=== PATIENT | male | born 1930 | race Caucasian/White ===

== ENCOUNTER 2017-09-13 11:03 | Day surgery (SDC) | payer MEDICARE, BC ==
[2017-09-13] VITALS (8 sets, daily range): BP systolic 132–159; BP diastolic 73–90; PULSE 55–66; TEMP 97.4–98.3
[~2017-09-13] VITALS: Ht 175.4 cm; Wt 88.0 kg
[~2017-09-13 11:03] MED LIST: ALEVE 220MG220 MG PO; ALLOPURINOL300 MG PO; AMARYL4 MG PO; AMLODIPINE5 MG PO; ASPIRIN 81M81 MG/TA2 PO; AVAPRO150 MG PO; CALCIUM 600MG+D1 TAB PO; CARDI-OMEGA1000 MG PO; COZAAR100 MG PO; DYAZIDE 25 MG-31 CAP PO; DYAZIDE PO; FINASTERIDE5 MG PO; FISH OIL CONC1000 MG PO; FLOMAX 0.40.4 MG/CAP PO; FOSINOPRIL40 MG PO; KLOR-CON20 MEQ PO; LOPRESSOR 550 MG/TAB PO; LOPRESSOR100 MG PO; MAXZIDE-25MG TA1 TAB PO; METAMUCIL3.4 GM/DOS PO; MONOPRIL40 MG PO; MULTIPLE VITAMI1 TA5 PO; NATURE'S BLEND400 IU PO; NORVASC 10MG10 MG PO; NORVASC 5MG5 MG/TAB PO; OMEPRAZOLE20 MG PO; PRILOSEC 20MG20 MG PO; PROSCAR PO; TYLENOL ARTHRI650 M1 PO; VITAMIN B121000 MCG PO; VITAMIN B12500 MCG PO; VITAMIN C500 MG PO; ZAROXOLYN5 MG PO; ZESTRIL 10MG10 MG PO; ZYLOPRIM 300MG300 MG PO; [UNRECOGNIZED DRUG - OTHER] PO
[2017-09-13 12:05] LABS: POTASSIUM 3.9 mmol/L (3.4-5.0)
[2017-09-13 12:06] LABS: INR 1.7 (0.8-3.0); PROTHROMBIN TIME 19.8 SECONDS (9.7-12.8)
[2017-09-13] MEDS ORDERED: PROSCAR 5MG5 MG PO (12:06)
[2017-09-13] MEDS ORDERED: LOPRESSOR 225 MG/TAB PO (12:08)
[2017-09-13] MEDS ORDERED: REMERON 15M15 MG/TA1 PO (12:09)
[2017-09-13] MEDS ORDERED: MYSOLINE 5050 MG/TAB PO (12:10)
[2017-09-13] MEDS ORDERED: COUMADIN 5MG5 MG/TAB PO (12:12)
[2017-09-13] MEDS ORDERED: VITAMIN B11000 MCG/M IM (12:13)
[2017-09-13] MEDS ORDERED: PEPCID 20MG TAB20 MG PO (12:15)
[2017-09-13] MEDS ORDERED: VITAMIN D31000 I1 PO (12:18)
[2017-09-13] MEDS ORDERED: CORDARONE200 MG/TAB PO (12:21)
[2017-09-13 12:40] LABS: THYROID STIMULATING HORMONE 40.6 uIU/mL (0.465-4.680)
== END 2017-09-13 15:50 | disposition home or self-care (01) ==
LOC: COL.CAR 11:03
PROVIDERS: Internal Medicine Interventional Cardiology
DX: I48.0 Paroxysmal atrial fibrillation (principal); R60.0 Localized edema; R06.02 Shortness of breath; D64.9 Anemia, unspecified; E11.9 Type 2 diabetes mellitus without complications; Z95.0 Presence of cardiac pacemaker; Z79.82 Long term (current) use of aspirin; Z79.01 Long term (current) use of anticoagulants; Z82.3 Family history of stroke; Z82.49 Family history of ischemic heart disease and other diseases of the circulatory system
CPT/HCPCS: J2250; J3010; J7030

== ENCOUNTER → 2018-04-04 | Outpatient (CLI) | payer MEDICARE, BC ==
[~2018-04-04] MED LIST changes: +CORDARONE200 MG/TAB PO; +COUMADIN 5MG5 MG/TAB PO; +LOPRESSOR 225 MG/TAB PO; +MYSOLINE 5050 MG/TAB PO; +PEPCID 20MG TAB20 MG PO; +PROSCAR 5MG5 MG PO; +REMERON 15M15 MG/TA1 PO; +VITAMIN B11000 MCG/M IM; +VITAMIN D31000 I1 PO
== END ==
LOC: ZCOL.LAB 16:02
DX: T81.33XA Disruption of traumatic injury wound repair, initial encounter (principal); L97.929 Non-pressure chronic ulcer of unspecified part of left lower leg with unspecified severity

== ENCOUNTER 2018-04-07 18:55 | Inpatient (IN) | payer MEDICARE, BC ==
[~2018-04-07] VITALS: Ht 177.8 cm; Wt 81.8 kg
[~2018-04-07 18:55] MED LIST changes: -CALCIUM 600MG+D1 TAB PO; -CARDI-OMEGA1000 MG PO; +EPA FISH OIL1 SGL PO; +MASON NATURAL2000 IU PO
[2018-04-07 22:04] LABS: BASO % 0.1 % (0.0-2.0); GRAN # 5.6 (1.4-6.5); GRAN % 66.3 % (42.2-75.2); LYMPH # 2.2 (1.2-3.4); LYMPH % 26.4 % (20.0-51.0); MEAN CELL VOLUME 106 fl (80.0-100.0); MEAN CORPUSCULAR HGB CONC 33 g/dl (33.0-37.0); MEAN PLATELET VOLUME 10.8 fl (7.4-10.4); MONO # 0.5 (0.1-0.6); MONO % 6.3 % (1.7-9.3); PLATELET COUNT 238 K/mm3 (130-400); RED BLOOD COUNT 2.25 M/mm3 (4.20-5.60); REDCELL DISTRIBUTION WIDTH-CV 13.2 % (11.5-14.5)
[2018-04-07 22:08] LABS: HEMATOCRIT 23.8 % (42.0-52.0); HEMOGLOBIN 7.9 g/dl (13.5-18.0); MEAN CORPUSCULAR HEMOGLOBIN 35 pg (27.0-31.0)
[2018-04-07 22:17] LABS: ALBUMIN 3.4 gm/dL (3.5-5.0); BILIRUBIN,TOTAL 0.3 mg/dL (0.0-1.0); C-REACTIVE PROTEIN 6.5 mg/dL (0.0-0.9); CALCIUM 9.4 mg/dL (8.4-10.2); CREATININE, serum 1.33 mg/dL (0.66-1.25); POTASSIUM 4.8 mmol/L (3.4-5.0); TOTAL PROTEIN 6.4 gm/dL (6.4-8.2)
[2018-04-07 22:27] LABS: INR 8.5 (0.8-3.0); PROTHROMBIN TIME 96.4 SECONDS (9.7-12.8)
[2018-04-07] MEDS ORDERED: SYNTHROID 0.10.15 MG PO (22:27)
[2018-04-07] MEDS ORDERED: COUMADIN4 MG PO (22:38)
[2018-04-07 23:23] LABS: COLLECTION METHOD CLEAN CATCH
[2018-04-07 23:39] LABS: HYALINE CAST >12 /lpf; MUCOUS Present /lpf; PH 5 (5-8); SQUAMOUS EPITHELIAL 0-2 /hpf; URINE APPEARANCE Clear; URINE BACTERIA None Seen /hpf; URINE BILIRUBIN Negative (NEGATIVE); URINE BLOOD Negative (NEGATIVE); URINE COLOR Yellow; URINE GLUCOSE Negative (NEGATIVE); URINE KETONE Negative (NEGATIVE); URINE LEUKOCYTE ESTERASE Negative (NEGATIVE); URINE NITRATE Negative (NEGATIVE); URINE PROTEIN(semi-quant) Negative (NEGATIVE); URINE UROBILINOGEN Negative (NEGATIVE)
[2018-04-08] VITALS (12 sets, daily range): BP systolic 81–127; BP diastolic 39–61; PULSE 55–62; TEMP 97.9–98.3
--- NOTE | 2018-04-08 01:54 | NUR ---
THE PT WAS BROUGHT TO THE ROOM VIA STRETCHER, TRANSFERRED TO BED WITH 3 MAX ASSIST. VSS, SKIN ISSUES ARE LISTED HERE, TOO NUMEROUS FOR 5 PAGE ASSESSMENT SHEET: RIGHT MEDIAL KNEE, SUPERFICIAL 3" ABRAISION, DRY. LEFT LATERAL FOREHEAD, 3 SMALL AREAS OF SUPERFICIAL ABRAISION. LEFT ELBOW, SKIN TEAR, WITH GUAZE AND FOAM TAPE WITH AN OUTER COVERING OF TUBE GUAZE. CHEST, ABDOMEN- MULTIPLE LARGE FADED ECCYMOTIC AREAS, BROWN TO YELLOWISH, UNDER RIBS, ON RIBS. PT STATED FROM FALL IN HIS SHOWER. LEFT SALDAÑA, LARGE BLACK DRESSING DONE AT WOUND CARE FOR A WOUND THAT DEVELOPED ON HIS PREVIOUS HEMATOMA. LEFT ANTERIOR UPPER ARM, 4 AREAS OF ABRAISION, SMALL CIRCULAR, APROX .5CM WITH ECCYMOSIS SURROUNDING IT. LEFT UPPER THIGH, EDEMATOUS, THIGH WITH A 4" ECCYMOTIC AREA TO THE LATERAL ASPECT. INT TO HIS LEFT UPPER ARM. HE IS BEDRESTING, REQUESTED LIGHTS OUT SO THAT HE CAN SLEEP.
--- NOTE | 2018-04-08 05:38 | NUR ---
ORDERS TO THOMAS AND MEASURE HEMATOMA LEFT THIGH, AREAS MARKED BYMaryam HEATON, CHARGE NURSE WHO STATED THAT SHE IS UNABLE TO LOCATE A MEASURING TAPE AT THIS TIME TO MEASURE WILL TRY AND PERCURE ONE THROUGH CENTRAL SUPPLY THIS AM. IV PATENT TO RIGHT UPPER ARM, THE PT VERBALIZED THAT HE IS SLEEPING WELL.
[2018-04-08 07:47] LABS: BASO % 0.4 % (0.0-2.0); EOS % 0.3 % (0-4.0); GRAN # 4.2 (1.4-6.5); GRAN % 58.2 % (42.2-75.2); LYMPH # 2.3 (1.2-3.4); LYMPH % 32.6 % (20.0-51.0); MEAN CELL VOLUME 105 fl (80.0-100.0); MEAN CORPUSCULAR HGB CONC 33 g/dl (33.0-37.0); MONO # 0.6 (0.1-0.6); MONO % 7.7 % (1.7-9.3); PLATELET COUNT 200 K/mm3 (130-400); RED BLOOD COUNT 1.82 M/mm3 (4.20-5.60); REDCELL DISTRIBUTION WIDTH-CV 13.2 % (11.5-14.5); RETIC # 0.03 M/mm3 (0.02-0.16); RETIC % 1.9 % (0.5-3.52)
[2018-04-08 07:54] LABS: HEMATOCRIT 19.1 % (42.0-52.0); HEMOGLOBIN 6.3 g/dl (13.5-18.0); MEAN CORPUSCULAR HEMOGLOBIN 35 pg (27.0-31.0)
[2018-04-08 07:56] LABS: CALCIUM 8.6 mg/dL (8.4-10.2); CREATININE, serum 1.18 mg/dL (0.66-1.25); POTASSIUM 4.3 mmol/L (3.4-5.0)
[2018-04-08 08:06] LABS: IRON,SERUM 59 ug/dL (35-150)
[2018-04-08 08:15] LABS: TOTAL IRON BINDING CAPACITY 213 ug/dL (261-462)
[2018-04-08 08:21] LABS: INR 9.3 (0.8-3.0); PROTHROMBIN TIME 106.4 SECONDS (9.7-12.8)
--- NOTE | 2018-04-08 08:37 | NUR ---
Pt is awake and A/Ox4, resting in bed. He denies any pain or discomfort at this time. He states his left thigh is "occasionally sore" but none at this time. Small bruise, approx. 1/2 dollar size, noted to left upper thigh, surrounding skin is soft to touch. Thigh circum. 57 cm. Dressing to LLE per wound care is CDI. Dressings to bilat. FA are CDI. Pt remains NPO at this time. IVF are infusing into left upper arm without difficulty. Denies any needs, bed alarm is on.
[2018-04-08 08:42] LABS: FERRITIN 282 ng/mL (18-464)
--- NOTE | 2018-04-08 09:52 | NUR ---
Vitamin K started at this time, RN to remain in room until completed.
--- NOTE | 2018-04-08 10:00 | NUR ---
Left thigh circum. unchanged, 57 cm.
--- NOTE | 2018-04-08 11:41 | NUR ---
Unit of PRBC started at this time. Unit was verified with JODI Tang. Rate started at 60 ml/hr. S/S of tranfusion reaction was reviewed with pt, expressed understanding. Nurse to remain at bedside for first 15 min.
--- NOTE | 2018-04-08 11:54 | NUR ---
Pt is tolerating blood transfusion without difficulty. BP remains low but pt is sleeping soundly, asymptomatic. Rate increased to 100 ml/hr. Will monitor.
--- NOTE | 2018-04-08 12:00 | NUR ---
Left thigh circum. unchanged, 57 cm.
--- NOTE | 2018-04-08 13:55 | NUR ---
Pt continues to tolerate blood transfusion without difficulty. He is sitting up in bed finishing lunch. Denies any other needs.
--- NOTE | 2018-04-08 14:00 | NUR ---
Pt left thigh circum. is 57 cm.
--- NOTE | 2018-04-08 14:09 | NUR ---
Plan to return home with DTR Amy Chavez and home health care through [facility]. Patient reports that he has a lot of neighborhood support. Patient reports that he uses a fourwheel walker. Patient reports that he uses [facility] for RX and PCP is Dr. Degroot. Patient has a follow-up on the or the and a wound care dion on Tuesday. Patient reports that he no longer drives. 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 Action: Edcuated patient of resources and services. No additional care concerns identified.
--- NOTE | 2018-04-08 15:56 | NUR ---
Left thigh cirucum. is 57 cm.
[2018-04-08 16:59] LABS: INR 2.4 (0.8-3.0); PROTHROMBIN TIME 27.6 SECONDS (9.7-12.8)
[2018-04-08 17:51] LABS: BASO % 0.3 % (0.0-2.0); EOS # 0.1 (0.0-0.7); EOS % 0.6 % (0-4.0); GRAN # 4.3 (1.4-6.5); GRAN % 54.1 % (42.2-75.2); LYMPH # 2.9 (1.2-3.4); LYMPH % 37.4 % (20.0-51.0); MEAN CELL VOLUME 103 fl (80.0-100.0); MEAN CORPUSCULAR HGB CONC 33 g/dl (33.0-37.0); MEAN PLATELET VOLUME 11.2 fl (7.4-10.4); MONO # 0.5 (0.1-0.6); MONO % 6.8 % (1.7-9.3); PLATELET COUNT 197 K/mm3 (130-400); RED BLOOD COUNT 2.14 M/mm3 (4.20-5.60); REDCELL DISTRIBUTION WIDTH-CV 14.8 % (11.5-14.5)
[2018-04-08 18:00] LABS: HEMATOCRIT 22.1 % (42.0-52.0); HEMOGLOBIN 7.3 g/dl (13.5-18.0); MEAN CORPUSCULAR HEMOGLOBIN 34 pg (27.0-31.0)
--- NOTE | 2018-04-08 18:16 | NUR ---
Left thigh circum. is 57 cm. Pt has had an uneventful shift. He continues to be without pain. Bruise to left thigh remains unchanged. Pt denies any other needs.
[2018-04-09 00:34] VITALS: BP 126/47; PULSE 55; TEMP 97.9
--- NOTE | 2018-04-09 01:02 | NUR ---
THE PT WAS BEDRESTING WITH EYES CLOSED, SHIFT REPORT WAS DONE, NOT HAPPY ABOUT BEING AROUSED. IV PATENT TO LEFT UPPER ARM, MATTRESS COVER IS WRAPPED AROUND THE PUMP TO MUFFLE THE SOUND THE PT WAS ANNOYED BY IT. BRUISE TO LEFT LATERAL THIGH IS STABLE, CIRCUMFRANCE OF THE THIGH AT THE THOMAS IS 57CM CONSISTANTLY THE PAST 3 TIMES THAT IT WAS CHECKED. THE PT DECLINED AN HS SNACK, SPILLED HIS URINAL X2 IN THE BED, HYGIENE ASSISTED WITH A PARTIAL BED CHANGE. ENCOURAGED HIM TO CALL FOR ASSISTANCE WITH IT THE NEXT TIME THAT HE NEEDS TO USE IT. APPEARS OT GET ADEQUATE SLEEP.
--- NOTE | 2018-04-09 02:11 | NUR ---
NO CHANGE IN CSM, CIRCUMFREANCE OR APPEARANCE OF THE PTS LEFT THIGH.
--- NOTE | 2018-04-09 05:08 | NUR ---
each measure of the p[ts left thigh had been in the 57-56 cm range. when measured at the hematoma morgan. the pt had c\o pain, no Tylenol on APR, the pt stated that Tylenol has never been helpful to him. will relay to day shift and get an order this am. pt didn;t want me to call the hospitalist. repositioned without the pillow under his leg and hob\fob up slightly. voided per urinal.
[2018-04-09 06:24] VITALS: BP 128/48; PULSE 59; TEMP 98.3
[2018-04-09 06:55] LABS: BASO % 0.5 % (0.0-2.0); EOS # 0.1 (0.0-0.7); EOS % 1.4 % (0-4.0); GRAN # 3.5 (1.4-6.5); GRAN % 54.1 % (42.2-75.2); LYMPH # 2.4 (1.2-3.4); LYMPH % 36.6 % (20.0-51.0); MEAN CELL VOLUME 103 fl (80.0-100.0); MEAN CORPUSCULAR HGB CONC 34 g/dl (33.0-37.0); MEAN PLATELET VOLUME 10.7 fl (7.4-10.4); MONO # 0.4 (0.1-0.6); MONO % 6.6 % (1.7-9.3); PLATELET COUNT 186 K/mm3 (130-400); RED BLOOD COUNT 2.08 M/mm3 (4.20-5.60); REDCELL DISTRIBUTION WIDTH-CV 14.7 % (11.5-14.5)
[2018-04-09 06:57] LABS: INR 1.4 (0.8-3.0)
[2018-04-09 07:11] LABS: CALCIUM 8.2 mg/dL (8.4-10.2); CREATININE, serum 0.88 mg/dL (0.66-1.25)
[2018-04-09 07:19] LABS: HEMATOCRIT 21.4 % (42.0-52.0); HEMOGLOBIN 7.2 g/dl (13.5-18.0); MEAN CORPUSCULAR HEMOGLOBIN 35 pg (27.0-31.0)
[2018-04-09 08:22] VITALS: BP 124/55; PULSE 56; TEMP 98.6
--- NOTE | 2018-04-09 09:54 | NUR ---
Pt is awake and A/Ox4. Denies pain to his leg, states he has a neck ache "from the bed", given warm pack. IVF are infusing into left upper arm without difficulty. Small bruise noted to left upper thigh, within outline. Surrounding skin is soft. Pt denies any other needs, will monitor.
[2018-04-09 12:06] VITALS: BP 125/57; PULSE 56; TEMP 97.7
[2018-04-09 15:49] VITALS: BP 127/56; PULSE 54; TEMP 98.5
--- NOTE | 2018-04-09 18:12 | NUR ---
Pt has had an overall uneventful shift. He continues to deny pain to his LLE. Family at bedside, denies any other needs.
[2018-04-09 20:38] VITALS: BP 122/48; PULSE 55; TEMP 99.4
--- NOTE | 2018-04-09 21:00 | NUR ---
Pt. laying in bed at this time. Pt. is A&OX3, assessment complete. INT to lt. upper arm patent. Pt. reported pain to lle earlier, gave pain meds with evening meds. Pt. repostioned for comfort. Pt. denies further needs, call light within reach.
[2018-04-10 04:49] VITALS: BP 114/43; PULSE 54; TEMP 97.3
--- NOTE | 2018-04-10 06:00 | NUR ---
Pt. laying in bed at this time. Pt. remains A&OX3. INT to lt. upper arm patent. Pt. denies pain or other needs at this time. Call light within reach.
[2018-04-10 06:19] LABS: BASO % 0.4 % (0.0-2.0); EOS # 0.1 (0.0-0.7); EOS % 2.3 % (0-4.0); GRAN # 3.1 (1.4-6.5); GRAN % 55.8 % (42.2-75.2); LYMPH # 1.9 (1.2-3.4); MEAN CELL VOLUME 104 fl (80.0-100.0); MEAN CORPUSCULAR HGB CONC 33 g/dl (33.0-37.0); MONO # 0.4 (0.1-0.6); MONO % 7.3 % (1.7-9.3); PLATELET COUNT 203 K/mm3 (130-400); RED BLOOD COUNT 1.96 M/mm3 (4.20-5.60); REDCELL DISTRIBUTION WIDTH-CV 14.6 % (11.5-14.5)
[2018-04-10 06:27] LABS: CALCIUM 8.1 mg/dL (8.4-10.2); CREATININE, serum 0.74 mg/dL (0.66-1.25); POTASSIUM 3.7 mmol/L (3.4-5.0)
[2018-04-10 06:31] LABS: HEMATOCRIT 20.4 % (42.0-52.0); HEMOGLOBIN 6.8 g/dl (13.5-18.0); MEAN CORPUSCULAR HEMOGLOBIN 35 pg (27.0-31.0)
[2018-04-10 06:54] LABS: INR 1.4 (0.8-3.0); PROTHROMBIN TIME 16.4 SECONDS (9.7-12.8)
--- NOTE | 2018-04-10 07:12 | NUR ---
Report from Naseem ZAPATA.
[2018-04-10 07:22] VITALS: BP 137/57; PULSE 55; TEMP 97.2
--- NOTE | 2018-04-10 07:46 | NUR ---
hgb or 6.[address] Segundo. He will eval during rounds.
--- NOTE | 2018-04-10 11:19 | NUR ---
SW attended clinical rounding and met with patient to discuss snf recommendation from PT. Patient reports he would like his daughter, Kriss, to make the decision and asked for SW to call him. SW contacted Kriss who would like [facility] and [facility]2 [facility]. SW made referrals and will follow up with daughter once anyone has accepted. Zen from [facility] called this SW and reported they were going to go screen this previous sat for wound care, PT, and OT. SW will keep them updated as to where patient goes so they can follow. Chioce form placed on chart. SW to follow.
--- NOTE | 2018-04-10 11:56 | NUR ---
WOUND CARE HERE TO PLACE WOUND VAC TO LEFT LOWER EXTREMITY. WOUND IS APPROX 3 INCHES X 1 INCH WIDE AND TUNNELING MALODEROUS WOUND.
[2018-04-10 12:27] VITALS: BP 128/63; PULSE 55; TEMP 97.9
[2018-04-10 15:39] VITALS: BP 120/53; PULSE 61; TEMP 97.5
--- NOTE | 2018-04-10 15:53 | NUR ---
[facility] cannot accept if patient is on a wound vac. Would like an update tomorrow. [facility] also cannot accept if on a wound vac. Both will follow if patient doesnt need wound vac.
[2018-04-10 16:18] LABS: HEMATOCRIT 23.5 % (42.0-52.0); HEMOGLOBIN 7.9 g/dl (13.5-18.0)
[2018-04-10 20:39] VITALS: BP 145/55; PULSE 88; TEMP 98.6
--- NOTE | 2018-04-10 21:00 | NUR ---
Assessment completed. Patient is A&O x 4. VSS, on room air. Denies any pain unless he states he pushes on his left thigh. Noted scattered abrasions & skin tears to left upper arm and left leg. Moderate sized area on left thigh of ecchymosis. Wound vac to LLE wound @ 200 mm of continuous suction, scant output noted. Denies any nausea. Voiding via urinal with no difficulities. INT to left upper arm with intermittent antibiotic. Repositioned with assist x 2. Denies any concerns or needs, call light within reach.
[2018-04-11] VITALS (7 sets, daily range): BP systolic 109–144; BP diastolic 56–66; PULSE 55–58; TEMP 97.5–98.6
--- NOTE | 2018-04-11 05:39 | NUR ---
Patient has been resting well through the night between nursing disruptions. VSS, remains on room air. Denies any pain. Wound vac remains to continuous suction at 200 mm to LLE wound. Repositioned through the night with assist x 2. Denies any concerns or needs at this time, call light remains within reach.
--- NOTE | 2018-04-11 06:45 | NUR ---
Reported on to JODI Amador.
--- NOTE | 2018-04-11 07:00 | NUR ---
Hematoma lateral upper left leg reduced in size from reference line. Wound vac left ankle. Vac bandage CDI. No SCDs or TEDs on either leg. INT on left AC CDI.
[2018-04-11 07:58] LABS: MEAN CELL VOLUME 105 fl (80.0-100.0); MEAN CORPUSCULAR HGB CONC 33 g/dl (33.0-37.0); MEAN PLATELET VOLUME 10.6 fl (7.4-10.4); PLATELET COUNT 240 K/mm3 (130-400); RED BLOOD COUNT 2.03 M/mm3 (4.20-5.60); REDCELL DISTRIBUTION WIDTH-CV 14.2 % (11.5-14.5)
[2018-04-11 08:01] LABS: HEMATOCRIT 21.3 % (42.0-52.0); HEMOGLOBIN 7.1 g/dl (13.5-18.0); MEAN CORPUSCULAR HEMOGLOBIN 35 pg (27.0-31.0)
[2018-04-11 08:10] LABS: INR 1.9 (0.8-3.0); PROTHROMBIN TIME 21.2 SECONDS (9.7-12.8)
[2018-04-11 08:20] LABS: EOSINOPHIL 3 % (0-4); LYMPHOCYTE 35 % (20.0-51.0); NEUTROPHILS 56 % (42.0-75.2); NUCLEATED RED BLOOD CELL 1 (0-6); PLATELET ESTIMATE NORMAL (NORMAL)
--- NOTE | 2018-04-11 09:45 | NUR ---
PT trandfer to chair. Unsteady gait. 2 assist.
--- NOTE | 2018-04-11 10:00 | NUR ---
Consult with Dr. Segundo. Daughter and son-in-law present.
--- NOTE | 2018-04-11 10:43 | NUR ---
Initial visit; Patient thanked Carbide Operator for looking in on him and offering spiritual care. Carbide Operator offered God's blessings and wished him well.
--- NOTE | 2018-04-11 13:06 | NUR ---
SW attended clinical rounds and updated the patient, patient's daughter (Sanam), and son-in-law on referrals. The patient and patient's daughter are agreeable for patient to transfer to [facility] upon discharge. BROOKS informed Torres at [facility]. SW to fax [facility] updates and continue to follow.
--- NOTE | 2018-04-11 20:00 | NUR ---
Assessment completed. Patient is A&O x 4. VSS, on room air. Tele maintained. Denies any pain. Left upper thigh hematoma with ecchymosis, previous marked site. Wound vac to 200 mm of continuous suction to LLE wound, scant amount of brown drainage noted in tubing and chamber. Patient states he has been working on ankle pumps that he was instructed to do. Repositioned in bed with assist x 2. Denies any nausea. Voiding per urinal, urine is yellow clear. INT to left upper arm with intermittent antibiotic. Denies any concerns or needs at this time, call light is within reach.
[2018-04-12 04:05] VITALS: BP 122/53; PULSE 57; TEMP 98.5
--- NOTE | 2018-04-12 05:31 | NUR ---
Patient has rested intermittently through the night. VSS, remains on room air. Continues to deny any pain. One episode of incontinence through the night, pericare provided. Repositioned with assist x 2. Wound vac remains to LLE to 200 mm of continuous suction. Denies any concerns or needs, call light remains within reach.
--- NOTE | 2018-04-12 06:40 | NUR ---
appears to be dozing, awakens easily, bedside shift report received from JODI Shelton
--- NOTE | 2018-04-12 07:09 | NUR ---
Report given to JODI Rogers.
[2018-04-12 07:40] LABS: BASO % 0.4 % (0.0-2.0); EOS # 0.2 (0.0-0.7); GRAN # 3.1 (1.4-6.5); GRAN % 58.3 % (42.2-75.2); LYMPH # 1.7 (1.2-3.4); LYMPH % 31.3 % (20.0-51.0); MEAN CELL VOLUME 106 fl (80.0-100.0); MEAN CORPUSCULAR HGB CONC 33 g/dl (33.0-37.0); MEAN PLATELET VOLUME 9.9 fl (7.4-10.4); MONO # 0.3 (0.1-0.6); MONO % 6.3 % (1.7-9.3); PLATELET COUNT 245 K/mm3 (130-400); RED BLOOD COUNT 2.06 M/mm3 (4.20-5.60); REDCELL DISTRIBUTION WIDTH-CV 14.9 % (11.5-14.5)
[2018-04-12 07:43] LABS: HEMATOCRIT 21.8 % (42.0-52.0); HEMOGLOBIN 7.2 g/dl (13.5-18.0); MEAN CORPUSCULAR HEMOGLOBIN 35 pg (27.0-31.0)
[2018-04-12 07:54] LABS: CALCIUM 7.9 mg/dL (8.4-10.2); CREATININE, serum 0.74 mg/dL (0.66-1.25); POTASSIUM 3.7 mmol/L (3.4-5.0)
[2018-04-12 08:00] VITALS: BP 124/66; PULSE 89; TEMP 98.3
[2018-04-12 08:09] LABS: INR 1.8 (0.8-3.0); PROTHROMBIN TIME 20.1 SECONDS (9.7-12.8)
--- NOTE | 2018-04-12 08:30 | NUR ---
resting in bed after having had breakfast, full assessment completed, see interventions for further info, wound vac at 200 continuous, has large buise to left hip and thigh that is soft, denies pain or needs
--- NOTE | 2018-04-12 10:35 | NUR ---
physical therapy in to work with patient, ambulated short distance and then into bathroom to have bowel movement
--- NOTE | 2018-04-12 10:55 | NUR ---
ambulated back to bed with 1 assist, wound vac on at 200 continuous
--- NOTE | 2018-04-12 11:30 | NUR ---
Dr Silva and care team in to see patient
--- NOTE | 2018-04-12 12:12 | NUR ---
wound care nurses in to see ptient and dressing to wound vac changed, tolerated well
[2018-04-12 12:25] VITALS: BP 133/60; PULSE 55; TEMP 98.1
--- NOTE | 2018-04-12 13:42 | NUR ---
physical therapy in to work with patient, refused to get out of bed with therapy that he is too tired after having wound care in, now asking about preventing "bedsore" that his bottom is sore, encouraged to get out of bed and/or lay on side
--- NOTE | 2018-04-12 14:00 | NUR ---
medicated with tylenol 650mg for c/os pain to left leg,
--- NOTE | 2018-04-12 14:19 | NUR ---
SW contacted and faxed updates to [facility]. BROOKS to continue to follow.
--- NOTE | 2018-04-12 15:24 | NUR ---
asking to take a walk, walked from his room out to nurses station and then back and into recliner to rest for a while, denies needs
[2018-04-12 16:09] VITALS: BP 127/57; PULSE 56; TEMP 98.1
--- NOTE | 2018-04-12 17:53 | NUR ---
sitting up in bed eating supper,
--- NOTE | 2018-04-12 18:58 | NUR ---
bedside shift report given to Caroline Shelton
--- NOTE | 2018-04-12 20:15 | NUR ---
Assessment completed. Patient is A&O x 4. VSS, on room air. Tele maintained. Tylenol given for c/o LLE pain, reports it is better from earlier today after dressing changed. Wound vac to LLE with 200 mm of continuous suction. Scattered abrasions and skin tear to left upper arm. Hematoma noted on left thigh and bruising noted to left thigh/hip. Denies any nausa. Voiding via urinal with no difficulities, urine is yellow clear. INT to left upper arm with intermittent antibiotic. Denies any concerns or needs at this time, call light is within reach.
[2018-04-12 20:16] VITALS: BP 129/50; PULSE 56; TEMP 98.4
[2018-04-13 00:54] VITALS: BP 120/60; PULSE 55; TEMP 98.6
[2018-04-13 03:37] VITALS: BP 143/57; PULSE 59; TEMP 98.6
--- NOTE | 2018-04-13 04:55 | NUR ---
Patient has rested intermittently through the night. VSS, remains on room air. Denies any pain this morning, states the Tylenol took care of it all earlier. Wound vac to LLE remains to 200 mm of continuous suction with scant amount of brown output. INT with intermittent antibiotic. Patient did have an episode of incontinence of urine. Bed changed and pericare provided. Repositioned through the night with assist x 2. Denies any concerns or needs at this time, call light remains within reach.
[2018-04-13 07:50] LABS: BASO % 0.5 % (0.0-2.0); EOS # 0.2 (0.0-0.7); EOS % 3.6 % (0-4.0); GRAN # 2.5 (1.4-6.5); GRAN % 55.4 % (42.2-75.2); LYMPH # 1.4 (1.2-3.4); LYMPH % 32.1 % (20.0-51.0); MEAN CELL VOLUME 106 fl (80.0-100.0); MEAN CORPUSCULAR HGB CONC 33 g/dl (33.0-37.0); MEAN PLATELET VOLUME 10.5 fl (7.4-10.4); MONO # 0.3 (0.1-0.6); MONO % 7.7 % (1.7-9.3); PLATELET COUNT 249 K/mm3 (130-400); RED BLOOD COUNT 2.11 M/mm3 (4.20-5.60); REDCELL DISTRIBUTION WIDTH-CV 15.3 % (11.5-14.5)
[2018-04-13 07:59] LABS: HEMATOCRIT 22.3 % (42.0-52.0); HEMOGLOBIN 7.3 g/dl (13.5-18.0); MEAN CORPUSCULAR HEMOGLOBIN 35 pg (27.0-31.0)
[2018-04-13 08:06] LABS: CALCIUM 7.9 mg/dL (8.4-10.2); CREATININE, serum 0.74 mg/dL (0.66-1.25); POTASSIUM 3.7 mmol/L (3.4-5.0)
[2018-04-13 12:33] VITALS: BP 130/74; PULSE 55; TEMP 97.5
--- NOTE | 2018-04-13 15:15 | NUR ---
BROOKS contacted and faxed updates to [facility]. SW to continue to follow.
[2018-04-13 16:18] VITALS: BP 1208/59; BP 128/59; PULSE 56; TEMP 98
--- NOTE | 2018-04-13 18:00 | NUR ---
Patient has done well today. No complaints of pain or nausea. Dressing to LLE is intact, wound-vac is working without problems. Patient sat up in the recliner for a short time this am. He said it was uncomfortable. He is hoping to discharge tomorrow. No other changes at this time. Call light within reach.
[2018-04-13 19:22] VITALS: BP 130/59; PULSE 64; TEMP 97.5
--- NOTE | 2018-04-13 21:45 | NUR ---
Assessment completed. Patient is A&O x 4. VSS, on room air. Denies any pain. Wound vac remains to LLE at 200 mm of continuous suction, scant amount of brown drainage noted in tubing and chamber. Scattered abrasions and skin tear to left upper arm. Bruising and swelling to left thigh. Denies any nausea. Voiding via urinal with occassional incontinence. Repositioned with assist x 2 in bed. INT to left upper arm with intermittent antibiotic. Denies any concerns or needs at this time. Bed remains in a low position with call light in reach.
[2018-04-14 00:36] VITALS: BP 132/58; PULSE 55; TEMP 98.3
[2018-04-14 04:53] VITALS: BP 126/59; PULSE 58; TEMP 98
[2018-04-14 06:23] LABS: BASO % 0.5 % (0.0-2.0); EOS # 0.1 (0.0-0.7); EOS % 2.3 % (0-4.0); GRAN # 3.4 (1.4-6.5); GRAN % 59.1 % (42.2-75.2); LYMPH # 1.7 (1.2-3.4); MEAN CELL VOLUME 108 fl (80.0-100.0); MEAN CORPUSCULAR HGB CONC 33 g/dl (33.0-37.0); MEAN PLATELET VOLUME 10.4 fl (7.4-10.4); MONO # 0.4 (0.1-0.6); MONO % 7.2 % (1.7-9.3); PLATELET COUNT 276 K/mm3 (130-400); RED BLOOD COUNT 2.12 M/mm3 (4.20-5.60); REDCELL DISTRIBUTION WIDTH-CV 16.2 % (11.5-14.5)
--- NOTE | 2018-04-14 06:24 | NUR ---
Patient has rested well through the night. VSS, remains on room air. Continues to deny any pain. Wound vac remains maintained to LLE with 200 mm of continuous suction. Up with assist x 2 to the bedside commode. Denies any concerns or needs at this time, call light is within reach.
[2018-04-14 06:28] LABS: HEMATOCRIT 22.9 % (42.0-52.0); HEMOGLOBIN 7.6 g/dl (13.5-18.0); MEAN CORPUSCULAR HEMOGLOBIN 36 pg (27.0-31.0)
[2018-04-14 06:35] LABS: CREATININE, serum 0.91 mg/dL (0.66-1.25); POTASSIUM 3.7 mmol/L (3.4-5.0)
[2018-04-14 06:44] LABS: INR 1.5 (0.8-3.0); PROTHROMBIN TIME 16.7 SECONDS (9.7-12.8)
[2018-04-14] MEDS ORDERED: AMOXICILLIN 8751 TAB PO (07:10)
[2018-04-14] MEDS ORDERED: TYLENOL 325MG325 MG PO (07:10)
[2018-04-14] MEDS ORDERED: FERROUS GL325 MG/TAB PO (07:10)
[2018-04-14 07:21] VITALS: BP 142/63; PULSE 57; TEMP 98.4
--- NOTE | 2018-04-14 10:36 | NUR ---
The patient is to discharge today, 04/14, to [facility] for a skilled stay. Transportation was set for around [id number] via [facility]. SW informed the patient, patient's family friend (Leyla), and his nurse. They were all in agreeance. SW presented and explained the IM form to the patient. Patient verbalized understanding and signed the form. SW provided a copy. No additional needs at this time.
[2018-04-14 11:39] VITALS: BP 142/63; PULSE 57; TEMP 98.4
--- NOTE | 2018-04-14 13:07 | NUR ---
Patient is leaving. He is discharging to [facility]. Attempted to call report twice. Nobody is answering. Left a message, will attempt again. All belongings packed up and sent with patient. Info packet sent with patient. INT discontinued.
--- NOTE | 2018-04-14 14:30 | NUR ---
Attempted to call 3 times and only got the voicemail at [place] [facility]. No one has called back for report.
== END 2018-04-14 13:10 | DRG 605 ==
LOC: COL.ER 18:55 → SURG 23:15
PROVIDERS: Emergency Medicine; Family Medicine; Nurse Practitioner; Physician Assistant; ADMIT Internal Medicine
DX: S70.02XA Contusion of left hip, initial encounter (principal); D62 Acute posthemorrhagic anemia; D68.32 Hemorrhagic disorder due to extrinsic circulating anticoagulants; W18.30XA Fall on same level, unspecified, initial encounter; D51.9 Vitamin B12 deficiency anemia, unspecified; Z79.01 Long term (current) use of anticoagulants; I48.2 Chronic atrial fibrillation; N28.9 Disorder of kidney and ureter, unspecified; I10 Essential (primary) hypertension; Z91.81 History of falling; N40.0 Benign prostatic hyperplasia without lower urinary tract symptoms; E03.9 Hypothyroidism, unspecified; Z95.0 Presence of cardiac pacemaker
CPT/HCPCS: 99231-AI; 99232-AI; 99233-AI; 99239; J0295; J3430; J7030; P9016

== ENCOUNTER → 2018-04-17 | Outpatient (CLI) | payer MEDICARE, BC ==
[~2018-04-17] MED LIST changes: +AMOXICILLIN 8751 TAB PO; +COUMADIN4 MG PO; +FERROUS GL325 MG/TAB PO; +SYNTHROID 0.10.15 MG PO; +TYLENOL 325MG325 MG PO
[2018-04-17 12:17] LABS: BASO % 0.6 % (0.0-2.0); EOS # 0.2 (0.0-0.7); EOS % 2.7 % (0-4.0); GRAN # 3.9 (1.4-6.5); GRAN % 61.3 % (42.2-75.2); LYMPH # 1.8 (1.2-3.4); LYMPH % 27.9 % (20.0-51.0); MEAN CELL VOLUME 111 fl (80.0-100.0); MEAN CORPUSCULAR HGB CONC 32 g/dl (33.0-37.0); MEAN PLATELET VOLUME 10.4 fl (7.4-10.4); MONO # 0.4 (0.1-0.6); MONO % 6.6 % (1.7-9.3); PLATELET COUNT 314 K/mm3 (130-400); RED BLOOD COUNT 2.64 M/mm3 (4.20-5.60); REDCELL DISTRIBUTION WIDTH-CV 18.6 % (11.5-14.5)
[2018-04-17 12:19] LABS: HEMATOCRIT 29.3 % (42.0-52.0); HEMOGLOBIN 9.4 g/dl (13.5-18.0); MEAN CORPUSCULAR HEMOGLOBIN 36 pg (27.0-31.0)
== END ==
LOC: ZLAB.STJ 10:51
PROVIDERS: Family Medicine
DX: Z51.81 Encounter for therapeutic drug level monitoring (principal); Z79.899 Other long term (current) drug therapy; Z79.2 Long term (current) use of antibiotics

== ENCOUNTER → 2018-05-02 | Outpatient (REF) ==
[2018-05-02 09:43] LABS: BASO % 0.4 % (0.0-2.0); EOS # 0.2 (0.0-0.7); EOS % 4.1 % (0-4.0); GRAN # 2.1 (1.4-6.5); GRAN % 41.2 % (42.2-75.2); HEMATOCRIT 32.9 % (42.0-52.0); HEMOGLOBIN 10.7 g/dl (13.5-18.0); LYMPH # 2.4 (1.2-3.4); LYMPH % 45.7 % (20.0-51.0); MEAN CELL VOLUME 111 fl (80.0-100.0); MEAN CORPUSCULAR HEMOGLOBIN 36 pg (27.0-31.0); MEAN CORPUSCULAR HGB CONC 33 g/dl (33.0-37.0); MEAN PLATELET VOLUME 10.3 fl (7.4-10.4); MONO # 0.4 (0.1-0.6); MONO % 8.2 % (1.7-9.3); PLATELET COUNT 244 K/mm3 (130-400); RED BLOOD COUNT 2.97 M/mm3 (4.20-5.60); REDCELL DISTRIBUTION WIDTH-CV 17.8 % (11.5-14.5)
== END ==
LOC: ZLAB.STJ 09:23 → EDSTATUS 09:41
PROVIDERS: Family Medicine
DX: R68.89 Other general symptoms and signs (principal)

== ENCOUNTER → 2018-05-24 | Outpatient (CLI) | payer MEDICARE, BC ==
[2018-05-24 12:12] LABS: CREATININE, serum 0.7 (0.66-1.25); POTASSIUM 3.1 mmol/L (3.4-5.0)
== END ==
LOC: ZLAB.STJ 11:24
PROVIDERS: Family Medicine
DX: R79.89 Other specified abnormal findings of blood chemistry (principal)

== ENCOUNTER → 2018-05-24 | Outpatient (CLI) | payer MEDICARE, BC | LOC: ZLAB.STJ 10:33 | DX: R79.89 Other specified abnormal findings of blood chemistry (principal) ==

== ENCOUNTER → 2018-10-24 | Outpatient (CLI) | payer MEDICARE, BC | LOC: ZLAB.STJ 10:53 | PROVIDERS: Family Medicine | DX: D62 Acute posthemorrhagic anemia (principal) ==

== ENCOUNTER → 2018-11-29 | Outpatient (CLI) | payer MEDICARE, BC ==
[2018-11-29 13:11] LABS: HEMOGLOBIN 10.5 g/dl (13.5-18.0)
[2018-11-29 13:16] LABS: HEMATOCRIT 31.5 % (42.0-52.0)
== END ==
LOC: ZLAB.STJ 12:14
PROVIDERS: Family Medicine
DX: D62 Acute posthemorrhagic anemia (principal); M10.30 Gout due to renal impairment, unspecified site

== ENCOUNTER → 2018-12-11 | Outpatient (CLI) | payer MEDICARE, BC ==
[2018-12-11 14:27] LABS: CALCIUM 9.1 mg/dL (8.4-10.2); CREATININE, serum 0.73 (0.66-1.25)
[2018-12-11 14:31] LABS: BASO % 0.5 % (0.0-2.0); EOS # 0.2 (0.0-0.7); EOS % 4.6 % (0-4.0); GRAN # 1.9 (1.4-6.5); GRAN % 44.9 % (42.2-75.2); HEMOGLOBIN 10.7 g/dl (13.5-18.0); LYMPH # 1.8 (1.2-3.4); LYMPH % 41.1 % (20.0-51.0); MEAN CELL VOLUME 106 fl (80.0-100.0); MEAN CORPUSCULAR HEMOGLOBIN 36 pg (27.0-31.0); MEAN CORPUSCULAR HGB CONC 34 g/dl (33.0-37.0); MEAN PLATELET VOLUME 11.2 fl (7.4-10.4); MONO # 0.4 (0.1-0.6); MONO % 8.4 % (1.7-9.3); PLATELET COUNT 151 K/mm3 (130-400); RED BLOOD COUNT 2.97 M/mm3 (4.20-5.60); REDCELL DISTRIBUTION WIDTH-CV 13.1 % (11.5-14.5)
[2018-12-11 14:44] LABS: HEMATOCRIT 31.5 % (42.0-52.0)
== END ==
LOC: ZLAB.STJ 13:34
PROVIDERS: Family Medicine
DX: I10 Essential (primary) hypertension (principal); E11.69 Type 2 diabetes mellitus with other specified complication; D62 Acute posthemorrhagic anemia; D51.9 Vitamin B12 deficiency anemia, unspecified

== ENCOUNTER → 2018-12-25 | Outpatient (CLI) | payer MEDICARE, BC | LOC: ZCOL.LAB 13:47 | DX: D62 Acute posthemorrhagic anemia (principal) ==

== ENCOUNTER → 2019-01-26 | Outpatient (CLI) | payer MEDICARE, BC ==
[2019-01-26 12:07] LABS: BASO % 0.2 % (0.0-2.0); EOS # 0.1 (0.0-0.7); EOS % 2.3 % (0-4.0); GRAN # 2.1 (1.4-6.5); GRAN % 40.7 % (42.2-75.2); HEMOGLOBIN 11.9 g/dl (13.5-18.0); LYMPH # 2.5 (1.2-3.4); LYMPH % 47.5 % (20.0-51.0); MEAN CELL VOLUME 106 fl (80.0-100.0); MEAN CORPUSCULAR HEMOGLOBIN 36 pg (27.0-31.0); MEAN CORPUSCULAR HGB CONC 34 g/dl (33.0-37.0); MEAN PLATELET VOLUME 11.6 fl (7.4-10.4); MONO # 0.5 (0.1-0.6); MONO % 8.9 % (1.7-9.3); PLATELET COUNT 186 K/mm3 (130-400); RED BLOOD COUNT 3.31 M/mm3 (4.20-5.60); REDCELL DISTRIBUTION WIDTH-CV 13.4 % (11.5-14.5)
[2019-01-26 12:08] LABS: HEMATOCRIT 35.2 % (42.0-52.0)
== END ==
LOC: ZLAB.STJ 10:56
PROVIDERS: Family Medicine
DX: D51.9 Vitamin B12 deficiency anemia, unspecified (principal); D62 Acute posthemorrhagic anemia

== ENCOUNTER → 2019-04-03 | Outpatient (CLI) | payer MEDICARE, BC | LOC: ZLAB.STJ 10:03 | DX: E34.9 Endocrine disorder, unspecified (principal) ==

== ENCOUNTER → 2019-04-05 | Outpatient (CLI) | payer MEDICARE, BC ==
[2019-04-05 11:40] LABS: CALCIUM 8.9 mg/dL (8.4-10.2); CREATININE, serum 0.57 (0.66-1.25); POTASSIUM 3.9 mmol/L (3.4-5.0)
== END ==
LOC: ZLAB.STJ 09:43
PROVIDERS: Family Medicine
DX: I10 Essential (primary) hypertension (principal)

== ENCOUNTER → 2019-04-30 | Outpatient (CLI) | payer MEDICARE, BC ==
[2019-04-30 10:02] LABS: BASO % 0.6 % (0.0-2.0); EOS # 0.2 (0.0-0.7); EOS % 3.5 % (0-4.0); GRAN # 2.8 (1.4-6.5); GRAN % 50.9 % (42.2-75.2); HEMOGLOBIN 11.8 g/dl (13.5-18.0); LYMPH # 2.1 (1.2-3.4); LYMPH % 37.8 % (20.0-51.0); MEAN CELL VOLUME 106 fl (80.0-100.0); MEAN CORPUSCULAR HEMOGLOBIN 36 pg (27.0-31.0); MEAN CORPUSCULAR HGB CONC 34 g/dl (33.0-37.0); MEAN PLATELET VOLUME 10.7 fl (7.4-10.4); MONO # 0.4 (0.1-0.6); MONO % 6.6 % (1.7-9.3); PLATELET COUNT 195 K/mm3 (130-400); RED BLOOD COUNT 3.32 M/mm3 (4.20-5.60); REDCELL DISTRIBUTION WIDTH-CV 13.2 % (11.5-14.5)
[2019-04-30 10:03] LABS: HEMATOCRIT 35.2 % (42.0-52.0)
[2019-04-30 10:11] LABS: CALCIUM 8.9 mg/dL (8.4-10.2); CREATININE, serum 0.55 (0.66-1.25); POTASSIUM 3.9 mmol/L (3.4-5.0)
== END ==
LOC: ZLAB.STJ 09:32
PROVIDERS: Family Medicine
DX: R79.89 Other specified abnormal findings of blood chemistry (principal); R68.89 Other general symptoms and signs

== ENCOUNTER → 2019-05-11 | Outpatient (CLI) | payer MEDICARE, BC, MEDICAID ==
[2019-05-11 16:20] LABS: BASO % 0.4 % (0.0-2.0); EOS # 0.2 (0.0-0.7); EOS % 2.2 % (0-4.0); GRAN # 4.4 (1.4-6.5); GRAN % 60.8 % (42.2-75.2); HEMATOCRIT 37.2 % (42.0-52.0); HEMOGLOBIN 12.5 g/dl (13.5-18.0); LYMPH # 2.2 (1.2-3.4); LYMPH % 30.7 % (20.0-51.0); MEAN CELL VOLUME 105 fl (80.0-100.0); MEAN CORPUSCULAR HEMOGLOBIN 35 pg (27.0-31.0); MEAN CORPUSCULAR HGB CONC 34 g/dl (33.0-37.0); MEAN PLATELET VOLUME 10.8 fl (7.4-10.4); MONO # 0.4 (0.1-0.6); MONO % 5.3 % (1.7-9.3); PLATELET COUNT 251 K/mm3 (130-400); RED BLOOD COUNT 3.55 M/mm3 (4.20-5.60)
[2019-05-11 16:52] LABS: CREATININE, serum 0.65 (0.66-1.25); POTASSIUM 3.3 mmol/L (3.4-5.0)
== END ==
LOC: ZCOL.LAB 15:43
PROVIDERS: Internal Medicine Interventional Cardiology
DX: I50.22 Chronic systolic (congestive) heart failure (principal)

== ENCOUNTER → 2019-06-22 | Outpatient (CLI) | payer MEDICARE, BC, MEDICAID | LOC: ZLAB.STJ 11:40 | DX: E03.9 Hypothyroidism, unspecified (principal) ==

== ENCOUNTER → 2019-08-08 | Outpatient (CLI) | payer MEDICARE, BC, MEDICAID ==
[~2019-08-08] MED LIST changes: +ALBUTEROL0.83 MG/ML IH; +ELIQUIS 5MG PO; +IRON TABLETS325 MG PO; +KLOR-CON SPRIN10 MEQ PO; +LASIX 40MG TABL40 MG PO; +NORCO 325 MG-51 TAB PO; +TOPROL XL 25MG25 MG PO; +ZOLOFT 100MG100 MG PO
== END ==
LOC: ZLAB.STJ 15:16
DX: I10 Essential (primary) hypertension (principal)

== ENCOUNTER → 2019-08-14 | Outpatient (CLI) | payer MEDICARE, BC, MEDICAID | LOC: ZLAB.STJ 15:28 | DX: R79.89 Other specified abnormal findings of blood chemistry (principal) ==

== ENCOUNTER 2019-08-15 17:04 | Inpatient (IN) | payer MEDICARE, BC, MEDICAID ==
[~2019-08-15] VITALS: Ht 175.3 cm; Wt 53.4 kg
[2019-08-15] VITALS (264 sets, daily range): BP systolic 148–164; BP diastolic 88–108; PULSE 61–77; TEMP 98.1; O2SAT 81–99
[~2019-08-15 17:04] MED LIST changes: -ALBUTEROL0.83 MG/ML IH; -ELIQUIS 5MG PO; -IRON TABLETS325 MG PO; -KLOR-CON SPRIN10 MEQ PO; -LASIX 40MG TABL40 MG PO; -TOPROL XL 25MG25 MG PO; -ZOLOFT 100MG100 MG PO
--- NOTE | 2019-08-15 19:00 | NUR ---
Pt arrived via wheelchair, one assist from wheelchair to bed, automated vitals started, VSS - hypertension noted, dyspnic on exertion, orthopneic in bed - HOB to 70degrees 1903 Bedside report provided to JODI Shelton - transfer of care complete
--- NOTE | 2019-08-15 19:05 | NUR ---
Bedside report received from JODI Wu
--- NOTE | 2019-08-15 19:15 | NUR ---
Patient laying in bed watching tv. Dressing on LLE removed with drainage noted on dressing. Area cleaned with chlorhexidine swab and new dressing applied. Patient has a large abrasion there that is open and weeping as well as having scar tissue surrounding it and a large, silver dollar sized, blister at the distal end. Patient has various scrapes on his arms and legs. IV placed in right wrist. Patient tolerated well. Assessment complete, see admission B and shift assessment for details. Patient has mild complaints of chronic pain in his shoulders, but is not requesting pain meds at this time. Patient is incontinent and has a brief on. Patient attached to unit monitoring equipment and placed in a yellow gown. Patient has no further needs at this time. Will continue to monitor. Call light within reach.
[2019-08-15 21:06] LABS: BASO % 0.8 % (0.0-2.0); EOS # 0.1 (0.0-0.7); GRAN # 3.2 (1.4-6.5); GRAN % 60.8 % (42.2-75.2); HEMATOCRIT 38.1 % (42.0-52.0); HEMOGLOBIN 12.8 g/dl (13.5-18.0); LYMPH # 1.6 (1.2-3.4); LYMPH % 31.1 % (20.0-51.0); MEAN CELL VOLUME 107 fl (80.0-100.0); MEAN CORPUSCULAR HEMOGLOBIN 36 pg (27.0-31.0); MEAN CORPUSCULAR HGB CONC 34 g/dl (33.0-37.0); MEAN PLATELET VOLUME 10.4 fl (7.4-10.4); MONO # 0.3 (0.1-0.6); MONO % 5.9 % (1.7-9.3); PLATELET COUNT 173 K/mm3 (130-400); RED BLOOD COUNT 3.56 M/mm3 (4.20-5.60); REDCELL DISTRIBUTION WIDTH-CV 13.5 % (11.5-14.5)
[2019-08-15 21:25] LABS: CREATININE, serum 0.71 (0.66-1.25); POTASSIUM 3.1 mmol/L (3.4-5.0)
[2019-08-15 21:55] LABS: TSH w REFLEX 0.711 uIU/mL (0.465-4.680)
--- NOTE | 2019-08-15 23:05 | NUR ---
16F cudette urinary catheter placed at this time. Insertion was very difficult requiring multiple tries, some bloody drainage noted from the urethra, but no blood in urine. Urine return noted. securement device applied. Patient was very tolerant of the procedure, despite it being difficult. Will start Bumex gtt.
[2019-08-15] MEDS ORDERED: ELIQUIS 5MG PO (23:55)
[2019-08-16] VITALS (184 sets, daily range): BP systolic 93–145; BP diastolic 58–92; PULSE 60–80; TEMP 96.8–98.2; O2SAT 82–100
[2019-08-16] MEDS ORDERED: IRON TABLETS325 MG PO (00:56)
[2019-08-16] MEDS ORDERED: ALBUTEROL0.83 MG/ML IH (01:02)
[2019-08-16] MEDS ORDERED: ZOLOFT 100MG100 MG PO (01:03)
[2019-08-16] MEDS ORDERED: TOPROL XL 25MG25 MG PO (01:04)
[2019-08-16] MEDS ORDERED: KLOR-CON SPRIN10 MEQ PO (01:05)
[2019-08-16] MEDS ORDERED: LASIX 40MG TABL40 MG PO (01:06)
--- NOTE | 2019-08-16 01:30 | NUR ---
Patient calls at this time complaining of pain in his right arm. Checked on patient and educated that it was most likely from the potassium gtt. Rate decreased to 7.5MEQ per hour. Patient no longer complaining of pain
--- NOTE | 2019-08-16 07:22 | NUR ---
Bedside report given to JODI Ugalde
--- NOTE | 2019-08-16 07:50 | NUR ---
Report received from Cat ZAPATA and care resumed.
--- NOTE | 2019-08-16 09:56 | NUR ---
BROOKS met with the patient and his daughter, Amy Chavez (ph#[phone]), to discuss discharge plan. The patient resides at [facility] [place]. His PCP is Dr. Ana Diallo. He does not have advanced directives in EMR. The patient and his daughter report that he does have them completed and that Amy is his DPOA-HC. Amy reports that [facility] should have a copy of them. The patient and Amy report that the plan is for the patient to return back to [facility] upon discharge. BROOKS contacted and faxed updates to [place] at [facility]. BROOKS also requested a copy of the patient's advanced directives from [place]. BROOKS to continue to follow.
--- NOTE | 2019-08-16 11:57 | NUR ---
Called Dr Fu to update on urine output totals, current vitals, and plan of care. Dr stated would like to continue bumex drip for at least 24 hours. No new orders received at this time, will continue to follow.
--- NOTE | 2019-08-16 19:09 | NUR ---
Report given to Rex ZAPATA and care transfered.
[2019-08-17] VITALS (8 sets, daily range): BP systolic 75–142; BP diastolic 48–84; PULSE 59–76; TEMP 97.4–98.9
[2019-08-17 08:50] LABS: CALCIUM 9.1 mg/dL (8.4-10.2); CREATININE, serum 0.62 (0.66-1.25); POTASSIUM 3.2 mmol/L (3.4-5.0)
--- NOTE | 2019-08-17 10:53 | NUR ---
Call placed to [facility] to determine plan for patient. Environmental Tech answers phone. Tank to call back.
--- NOTE | 2019-08-17 12:55 | NUR ---
workers compensation defense attorney requested physical and occupational therapy orders. Worker spoke with Dr Fu and advised that patient resides in [facility] care at [facility]. Referral given to [facility], per Dr Fu's request. Patient and daughter state patient will return to [facility] upon discharge.
--- NOTE | 2019-08-17 18:10 | NUR ---
Pt up to the floor from the ICU this afternoon, all orders were cancelled upon transfer, contacted provider and received orders to restart medications Pt was receiving in the ICU, diet, RT, Tele, and fluid restriction. Pt resting comfortably in the room as of this note with no complaints.
[2019-08-18 03:21] VITALS: BP 145/76; PULSE 84; TEMP 98.3
--- NOTE | 2019-08-18 05:12 | NUR ---
PATIENT WAS REPOSITIONED IN BED SEVERAL TIMES THROUGH THE SHIFT TO GET HIM COMFORTABLE. PATIENT DID HAVE A BOWEL MOVEMENT AND A BED CHANGE WELL JONY CARE TO GET HIM CLEANED UP. PATIENT WAS A LITTLE ANXIOUS AFTER BEING CLEANED UP AND MOVED AROUND IN THE BED BUT WAS ABLE TO CALM DOWN AND HEAD BACK TO SLEEP. PATIENT HAS HIS SANTILLAN IN PLACE AND IT IS INTACT AND DRAINING. PATIENT HAS DENIED ANY OTHER NEEDS. WILL REPORT OFF TO DAY SHIFT.
[2019-08-18 06:49] LABS: BASO % 0.3 % (0.0-2.0); EOS # 0.1 (0.0-0.7); EOS % 0.9 % (0-4.0); GRAN # 4.6 (1.4-6.5); GRAN % 67.8 % (42.2-75.2); HEMATOCRIT 38.2 % (42.0-52.0); HEMOGLOBIN 12.8 g/dl (13.5-18.0); LYMPH # 1.5 (1.2-3.4); LYMPH % 22.8 % (20.0-51.0); MEAN CELL VOLUME 106 fl (80.0-100.0); MEAN CORPUSCULAR HEMOGLOBIN 36 pg (27.0-31.0); MEAN CORPUSCULAR HGB CONC 34 g/dl (33.0-37.0); MONO # 0.5 (0.1-0.6); MONO % 7.6 % (1.7-9.3); PLATELET COUNT 177 K/mm3 (130-400); RED BLOOD COUNT 3.59 M/mm3 (4.20-5.60); REDCELL DISTRIBUTION WIDTH-CV 13.2 % (11.5-14.5)
[2019-08-18 07:00] LABS: ALBUMIN 3.3 gm/dL (3.5-5.0); BILIRUBIN,TOTAL 1.1 mg/dL (0.0-1.0); CALCIUM 8.9 mg/dL (8.4-10.2); CREATININE, serum 0.61 (0.66-1.25); POTASSIUM 3.2 mmol/L (3.4-5.0); TOTAL PROTEIN 6.4 gm/dL (6.4-8.2)
[2019-08-18 07:52] VITALS: BP 146/80; PULSE 53; TEMP 98.6
--- NOTE | 2019-08-18 09:42 | NUR ---
Assessment complete. Pt sitting up in bed for breakfast at this time. States he did not sleep well at all. Reported some pain, contacted mignon for some PRn pain medication, tylenol was given for this. Pt states he does not think it will help but I suggested he try it. Wound on left cox is covered, CD&I no issues. IV site CD&I, flushed well. Will continue to monitor. Call light is in reach. No other needs at this time.
--- NOTE | 2019-08-18 10:24 | NUR ---
Patient called to notify me that the IV potassium was causing pain at his IV site and in that arm. I slowed the rate to 75 but his pain did not improve. Due to his fluid restriction diluting would be difficult. Pharmacy was able to switch to PO tabs. Pt was accepting of this.
[2019-08-18 11:50] VITALS: BP 130/74; PULSE 73; TEMP 98.3
--- NOTE | 2019-08-18 14:49 | NUR ---
PATIENT STATES HE IS COMFORTABLE AT THIS TIME WITH NO NEEDS. DAUGHTER IS AT THE BEDSIDE. CALL LIGHT IS IN REACH. WILL CONTINUE TO MONITOR.
[2019-08-18 16:01] VITALS: BP 136/84; PULSE 76; TEMP 97.4
--- NOTE | 2019-08-18 18:24 | NUR ---
PT NEEDED CLEANED UP AT THIS TIME HE WAS INCONTINENT OF LIQUID FECES. PATIENT ROLLED WELL FOR CLEANSING AND CHANGING OF CHUCKS. SANTILLAN WAS ALSO EMPTIED, URINE IS FOUL SMELLING WITH SEDIMENT. PATIENT TOLERATED WELL. IS NOW COMFORTABLE IN BED WITH NO FURTHER NEEDS.
--- NOTE | 2019-08-18 20:00 | NUR ---
Received report from JODI Lau. A/Ox4. c/o chronic pain to BUE, bilateral shoulders and BLE, pt refused prn tylenol. Made pt comfortable in bed. Medley in place, secured to RL. Pt had loose BM, changed and placed brief. Sacral area with mepilex in place. Tele monitor in place. meds administered as ordered. Needs attended too. Call light within reach.
[2019-08-18 20:29] VITALS: BP 143/71; PULSE 76; TEMP 97.7
[2019-08-19] VITALS (7 sets, daily range): BP systolic 96–139; BP diastolic 39–80; PULSE 60–78; TEMP 97.5–99
--- NOTE | 2019-08-19 00:33 | NUR ---
Pt had medium amount loose BM, mepilex changed, briefs changed and pt cleaned. Needs attended too at this time. Made pt comfortable in bed. water within reach on table. Call light within reach. Bed alarm set.
--- NOTE | 2019-08-19 03:32 | NUR ---
Pt had another loose/liquid BM, mepilex changed, briefs changed, pt cleaned and repositioned to comfort. Needs met at this time. call light within reach.
--- NOTE | 2019-08-19 07:06 | NUR ---
Report given to JODI Knight.
[2019-08-19 08:12] LABS: BASO % 0.4 % (0.0-2.0); EOS # 0.1 (0.0-0.7); EOS % 0.8 % (0-4.0); GRAN % 68.5 % (42.2-75.2); HEMATOCRIT 40.4 % (42.0-52.0); HEMOGLOBIN 13.7 g/dl (13.5-18.0); LYMPH # 1.7 (1.2-3.4); LYMPH % 23.2 % (20.0-51.0); MEAN CELL VOLUME 107 fl (80.0-100.0); MEAN CORPUSCULAR HEMOGLOBIN 36 pg (27.0-31.0); MEAN CORPUSCULAR HGB CONC 34 g/dl (33.0-37.0); MEAN PLATELET VOLUME 10.9 fl (7.4-10.4); MONO # 0.5 (0.1-0.6); MONO % 6.5 % (1.7-9.3); PLATELET COUNT 198 K/mm3 (130-400); RED BLOOD COUNT 3.77 M/mm3 (4.20-5.60)
[2019-08-19 08:17] LABS: CALCIUM 9.1 mg/dL (8.4-10.2); CREATININE, serum 0.64 (0.66-1.25); MAGNESIUM 1.5 mg/dL (1.6-2.3); POTASSIUM 3.9 mmol/L (3.4-5.0)
--- NOTE | 2019-08-19 09:49 | NUR ---
ROSALIA NOTE: PT WOKE UP CONFUSED WITH SITUATION. QUICKLY REORIENTED AND CURRENTLY AOX3. REPORTS GENERALIZED PAIN TO SHOULDER, MARTINEZ KNEES LT>RT AND BACK. SANTILLAN INTACT AND DRAINING FOUL CLOUDY DARK YELLOW URINE WITH WHITE SEDIMENT, LINE CLEARED TO PALE YELLOW URINE. PT REFUSED THERAPY THIS MORNING STATING HE ONLY USES FULL BODY LIFT, KNOWS HIS LEGS DONT WORK AND IS NOT INTERESTED IN EXERCISING. PT ABLE TO LIFT MARTINEZ FEET SLIGHTLY OFF BED BUT CANNOT SUSTAIN. MARTINEZ DIVISION TOLL WIRE CHIEF 3/5 WITH RT SHOULDER LIMITED ROM PT REPORTS CHRONIC ROTATOR CUFF ISSUES.
[2019-08-19 12:43] LABS: COLLECTION METHOD CATHETER
[2019-08-19 12:58] LABS: PH 8 (5-8); SQUAMOUS EPITHELIAL 0-2 /hpf; URINE APPEARANCE Hazy; URINE BACTERIA Rare /hpf; URINE BILIRUBIN Negative (NEGATIVE); URINE BLOOD 2+ (NEGATIVE); URINE COLOR Yellow; URINE GLUCOSE Negative (NEGATIVE); URINE KETONE Negative (NEGATIVE); URINE LEUKOCYTE ESTERASE 3+ (NEGATIVE); URINE NITRATE Negative (NEGATIVE); URINE PROTEIN(semi-quant) Negative (NEGATIVE); URINE UROBILINOGEN Negative (NEGATIVE)
--- NOTE | 2019-08-19 13:14 | NUR ---
BROOKS corresponded with patients nurse in regards to possible discharge of patient. No answer received about discharge today. BROOKS faxed updates from 08/17/2019-08/19/2019 to [facility].
--- NOTE | 2019-08-19 19:44 | NUR ---
Resting in bed. Incontinent of urine. Lungs crackles in left lower lobe and right lung. Heart murmur heard. Bowels active x4. Pulses present throughout. Bilateral lower leg edema +1. Mepilex in place to left lower leg and coccyx. Coccyx erythema present. Reports generalized pain. BP hypotensive-holding toprol and norco at this time. Patient repositioned for comfort. Dr. Hawley notified of soft BP. Hold AM dose of lisinopril and okay with holding toprol tonight. Patient denied other needs. Call light in reach.
--- NOTE | 2019-08-19 22:20 | NUR ---
Reports 5/10 generalized. pain. BP has improved. Will provide patient with PRN norco at this time. Call light in reach. Repositioned.
[2019-08-20] VITALS (23 sets, daily range): BP systolic 77–103; BP diastolic 38–55; PULSE 58–94; TEMP 97.4–97.7
--- NOTE | 2019-08-20 | NUR ---
Resting in bed. Denies needs. Call light in reach. Repositioned.
--- NOTE | 2019-08-20 02:40 | NUR ---
Resting in bed. Denies needs. Repositioned. Call light in reach.
--- NOTE | 2019-08-20 04:45 | NUR ---
Incontinent of urine. Cares provided and repositioned. Denies needs. Call light in reach.
--- NOTE | 2019-08-20 05:24 | NUR ---
Patient blood pressure 78/[address] Hawley. Stop lasix and metoprolol give NS 500ml over 2 hours.
--- NOTE | 2019-08-20 05:41 | NUR ---
INT right wrist leaking when flushed. Restarted in right forearm. Bolus started at this time.
--- NOTE | 2019-08-20 06:17 | NUR ---
Patient repositioned Q2H throughout night. Patient hypotensive this AM. Dr. Hawley aware and fluid bolus over 2 hours started. Otherwise uneventful night. Resting in bed this AM. Call light in reach.
--- NOTE | 2019-08-20 06:25 | NUR ---
Dr. Hawley called to follow up on patient. BP at 0615 73/42 and at 0624 82/40. Per Dr. Hawley bolus rest of bag and give another 500ml bolus when current bag is complete. Patient resting in bed. Asymptomatic.
[2019-08-20 06:55] LABS: MEAN CELL VOLUME 107 fl (80.0-100.0); MEAN CORPUSCULAR HGB CONC 33 g/dl (33.0-37.0); MEAN PLATELET VOLUME 11.1 fl (7.4-10.4); PLATELET COUNT 143 K/mm3 (130-400); RED BLOOD COUNT 3.26 M/mm3 (4.20-5.60); REDCELL DISTRIBUTION WIDTH-CV 13.2 % (11.5-14.5)
[2019-08-20 06:59] LABS: HEMATOCRIT 34.9 % (42.0-52.0); HEMOGLOBIN 11.6 g/dl (13.5-18.0); MEAN CORPUSCULAR HEMOGLOBIN 36 pg (27.0-31.0)
[2019-08-20 07:01] LABS: CALCIUM 8.5 mg/dL (8.4-10.2); CREATININE, serum 1.02 (0.66-1.25); MAGNESIUM 1.4 mg/dL (1.6-2.3); POTASSIUM 3.7 mmol/L (3.4-5.0)
--- NOTE | 2019-08-20 07:30 | NUR ---
Report received from JODI Zhong. Pt in bed resting, arouses to verbal stimuli but falls asleep easily, BP remain low, will continue to monitor.
--- NOTE | 2019-08-20 07:39 | NUR ---
Report given to JODI Abarca. Dr. Hawley updated. Add orders for hospitalist consult for sepsis and hypotension.
[2019-08-20 07:47] LABS: BAND 22 % (0-10); LYMPHOCYTE 5 % (20.0-51.0); METAMYELOCYTE 1 % (0-0); NEUTROPHILS 69 % (42.0-75.2)
[2019-08-20 07:48] LABS: PLATELET ESTIMATE NORMAL (NORMAL)
--- NOTE | 2019-08-20 08:40 | NUR ---
Assessmetn charted. VIANEY Goldman with hospitalist group who came and saw him this am, orders received. Pt cotninues to be somnolent, awakens easily but cant answer any questions, RUE falls to bed immediately. Pt pressures remain soft to date, otherwise other vitals are stable. Resting in bed with machine attached, will contniue to monitor.
[2019-08-20 10:05] LABS: ARTERIAL BLD GAS O2 SATURATION 94.4 % (92-100); ARTERIAL BLD GAS TCO2 CT 28.5; ARTERIAL BLOOD GAS BASE EXCESS 3.5 (-2-2); ARTERIAL BLOOD GAS HCO3 27.4 meq/L (22-26); ARTERIAL BLOOD GAS PCO2 38.8 mmHg (35-45); ARTERIAL BLOOD GAS PO2 66.6 mmHg (80-100); ARTERIAL BLOOD GAS pH 7.47 (7.35-7.45)
--- NOTE | 2019-08-20 16:09 | NUR ---
Market Superintendent attended clinical rounds with the team and patient will be put on comfort care. BROOKS followed up with patient's Daughter, Amy who advised she is interested in the [facility]. BROOKS faxed referral to Ana at [facility]. Ana followed up with BROOKS and advised that she spoke with Amy about the cost of room and board, which was Amy's main concern. BROOKS followed up with Amy who advised she feels [facility] is a good plan but wants to talk with her mac about it. BROOKS contacted Torres at [facility] and left a message. BROOKS spoke with Ana once again who requested an admit time of 1100 if possible tomorrow. BROOKS and Ana will follow up with Amy in the morning and set up transport at that time.
--- NOTE | 2019-08-20 17:59 | NUR ---
Pt was lethargic over most of shift, but at 1700 arouses to stimuli and able to answer all orientation questions for the first time today. Able to take a few sips of water upon request. Otherwise patient has been disoriented and lethargic most of the day, only awakens upon rotation and changing. Breathing pattern apneac at times. Daughter and DPOA was at bedside for most of day and he did not wake enough to recognize her most of day. Only had one small urination, incontinent in brief, otherwise no output all day. Will give bedside shift report to nightshift nurse who will resume care.
--- NOTE | 2019-08-20 18:34 | NUR ---
Pt eating supper with assistance and some bites independently.
--- NOTE | 2019-08-20 20:38 | NUR ---
Resting in bed. Assessment complete. Lungs clear. Murmur heard. Bowels active. Pulses present. Bilateral lower leg edema +1. Present. Wound to left lower leg covered with dressing CDI. Coccyx erythema present. Covered with mepilex. INT right forearm without complications. Patient incontinent. Cares provided and repositioned. Reports shortness of breath with repositioning. Sat up in bed. Patient 91% on rooom air. Placed on 1 liter of oxygen for comfort. Increased to 97%. Report relief. Denies other needs at this time. Denies pain. Call light in reach.
--- NOTE | 2019-08-20 22:07 | NUR ---
Resting in bed. Denies needs. Call light in reach.
[2019-08-21] VITALS: BP 96/57; PULSE 76; TEMP 97.4
--- NOTE | 2019-08-21 02:18 | NUR ---
Repositioned. Denies needs. Call light in reach.
[2019-08-21 04:00] VITALS: BP 100/62; PULSE 76; TEMP 97.6
--- NOTE | 2019-08-21 04:30 | NUR ---
Incontinent of urine. Cares provided. Repositoned. Call light in reach.
--- NOTE | 2019-08-21 06:05 | NUR ---
Patient was repositioned Q2H throughout night with incontinent cares provided as needed. Patient remained partially oriented to confused throughout night. Easily to reorient at times of confusion. Otherwise uneventful night. Resting in bed this AM. Recently repositioned. Call light in reach.
--- NOTE | 2019-08-21 06:59 | NUR ---
Report given to JODI Knight
[2019-08-21 07:21] VITALS: BP 111/53; PULSE 63; TEMP 97.7
[2019-08-21 07:52] LABS: HEMOGLOBIN 12.1 g/dl (13.5-18.0); MEAN CELL VOLUME 107 fl (80.0-100.0); MEAN CORPUSCULAR HEMOGLOBIN 36 pg (27.0-31.0); MEAN CORPUSCULAR HGB CONC 34 g/dl (33.0-37.0); MEAN PLATELET VOLUME 11.5 fl (7.4-10.4); PLATELET COUNT 146 K/mm3 (130-400); RED BLOOD COUNT 3.35 M/mm3 (4.20-5.60); REDCELL DISTRIBUTION WIDTH-CV 13.2 % (11.5-14.5)
--- NOTE | 2019-08-21 07:52 | NUR ---
PT AOX4 THIS MORNING. REPORTS ACHING PAIN TO RT ANKLE 5-10. GIVEN PRN ROXANOL. DENIED URGE TO VOID AT THIS TIME. ON PRESSURE REDUCING MATTRESS, Q2HR TURN AND MARTINEZ HEEL PROTECTORS WITH PILLOW UNDER KNEES. DRESSING TO [employer]CCYZ INTACT. LT ANKLE/SALDAÑA DRESSING ALSO INTACT, DUE FOR CHANGING TOMORROW. ON 1L NC FOR COMFORT. DENIES CP, WEAVER, SOB. VSS THIS MORNING. WILL CONT TO MONITOR.
[2019-08-21 08:03] LABS: HEMATOCRIT 35.9 % (42.0-52.0)
[2019-08-21 08:04] LABS: BILIRUBIN,TOTAL 0.5 mg/dL (0.0-1.0); CALCIUM 8.6 mg/dL (8.4-10.2); POTASSIUM 3.9 mmol/L (3.4-5.0); TOTAL PROTEIN 5.9 gm/dL (6.4-8.2)
[2019-08-21 08:19] LABS: MAGNESIUM 1.8 mg/dL (1.6-2.3)
[2019-08-21] MEDS ORDERED: ROXANOL 20MG20 MG/ML SL (08:45)
[2019-08-21] MEDS ORDERED: NORCO 325 MG-51 TAB PO (08:46)
[2019-08-21] MEDS ORDERED: ATIVAN 0.50.5 MG/TAB PO (08:47)
[2019-08-21 08:48] LABS: BAND 19 % (0-10); LYMPHOCYTE 2 % (20.0-51.0); NEUTROPHILS 76 % (42.0-75.2); PLATELET ESTIMATE NORMAL (NORMAL)
--- NOTE | 2019-08-21 10:29 | NUR ---
[employer] followed up with patient's daughter, Kriss who advised they have made a decision to go with [facility]. BROOKS followed up with Ana at [facility] who requested arrival time of around 1100. SW contacted [facility] and scheduled parts picker time for around 1045. SW placed EMS forms on patient's chart. BROOKS met with patient and patient's daughter Kriss to provide transport time. BROOKS faxed discharge orders and medications to Ana at [facility]. BROOKS contacted Torres at [facility] to provide update. No additional needs at this time.
--- NOTE | 2019-08-21 11:18 | NUR ---
PT DISCHARGED TO [facility] @1113 ACCOMPANIED BY DAUGHTER CHARMAINE AND EMS. AOX4. STATES MILD PAIN TO RT ANKLE DESPITE ROXANOL X2. REPORT CALLED TO NURSE RENETTA PAT. BRIEF DRY. DRESSING CHANGE ORDERS REVIEWED WITH VC POLO AND TRANSFERRED TO [facility] NURSE. SUPPLIED SENT WITH PT FOR FIRST TIME CHANGE. NO NEW CONCERNS
== END 2019-08-21 11:13 | disposition hospice, home (50) | DRG 871 ==
LOC: IMCU 17:04 → ICU 08-16 17:40 → MEDICAL 08-17 14:30
PROVIDERS: Internal Medicine Adult Congenital Heart Disease; Physician Assistant; ADMIT Internal Medicine Interventional Cardiology
DX: A41.9 Sepsis, unspecified organism (principal); I50.23 Acute on chronic systolic (congestive) heart failure; N39.0 Urinary tract infection, site not specified; E83.42 Hypomagnesemia; E03.9 Hypothyroidism, unspecified; G25.2 Other specified forms of tremor; N40.0 Benign prostatic hyperplasia without lower urinary tract symptoms; I48.91 Unspecified atrial fibrillation; I11.0 Hypertensive heart disease with heart failure; Z66 Do not resuscitate; Z51.5 Encounter for palliative care; R41.0 Disorientation, unspecified; E78.5 Hyperlipidemia, unspecified; E53.8 Deficiency of other specified B group vitamins; G62.9 Polyneuropathy, unspecified; Z95.0 Presence of cardiac pacemaker
CPT/HCPCS: 99223; 99239; J0696; J1940; J3475; J3480; J7030; J7040